=== PATIENT | female | born 1990 | race Two or more races ===

== ENCOUNTER 2024-06-13 10:21 | Emergency (ER) | payer MEDICAID, SELFPAY ==
[2024-06-13 10:40] VITALS: BP 128/81; PULSE 67; RESP 16; TEMP 36.8; O2SAT 99; BMI 39.4
--- NOTE | 2024-06-13 10:57 | EDNOTE_ITS ---
ED Eye Problem RME/HPI General Chief complaint: Eye Problems Stated complaint: LEFT EYE PAIN AND REDNESS Time Seen by Provider: 06/13/24 10:28 Source: patient Arrival date/time: 06/13/24 10:21 This is a 32-year-old female who presents to the emergency department with complaints of nasal pressure, bilateral ear pain, and redness in the left eye. She reports noticing a bloodshot appearance in her left eye for the past 3 days. She denies blurry vision, diplopia, or ocular pain. She does have a history of allergies and nasal congestion. She has not taken any [id number] medications or attempted any interventions prior to arrival. She denies any additional associated symptoms. No aggravating or relieving factors reported. No radiation or migration of symptoms. Related Data Home Medications ?Medication ?Instructions ?Recorded ?Confirmed ferrous sulfate 325 mg (65 mg 325 mg PO BIDWM #0 tabs 07/11/16 08/03/20 iron) tablet (Feosol) Previous Rx's ?Medication ?Instructions ?Recorded ibuprofen 800 mg tablet 800 mg PO TID PRN pain #30 t abs 08/04/20 amoxicillin 875 mg-potassium 1 tab PO BID #14 tabs clavulanate 125 mg tablet ibuprofen 800 mg tablet (IBU) 800 mg PO Q8H #20 tabs 0 06/13/24 loratadine 10 mg tablet (Allergy 10 mg PO Q24H PRN all ergic 06/13/24 Relief (loratadine)) symptoms #30 tabs Allergies Allergy/AdvReac Type Severity Reaction Status Date / Time No Known Allergies Allergy Verified 06/13/24 10:25 Review of Systems Review of Systems Systems Reviewed: All systems reviewed, normal except as documented Narrative Review of Systems: Review of Systems: * General: Denies fever, chills, weight loss * HEENT: Positive for nasal pressure, congestion, bilateral ear pain, and left eye redness. Denies blurry vision, diplopia, eye pain, or discharge * Respiratory: Denies shortness of breath or cough * Cardiovascular: Denies chest pain or palpitations * GI: Denies nausea, vomiting, or abdominal pain * Neuro: Denies headache, dizziness, weakness ED Exam Narrative Physical exam: General: Alert and oriented ?3, in no acute distress HEENT: * Head: Normocephalic, atraumatic * Eyes: Conjunctival injection of the left eye, no discharge, PERRLA, EOMI, no photophobia * Ears: Bilateral tympanic membranes mildly erythematous, no bulging or effusion * Nose: Mucosal congestion, no epistaxis * Throat: Oropharynx clear, no tonsillar exudate Neck: Supple, no lymphadenopathy Lungs: Clear to auscultation bilaterally Cardiovascular: RRR, no murmurs Neuro: CN II?XII intact, no focal deficits Course Quality Measures none Vital Signs Vital signs: Vital Signs Temperature 98.3 F 06/13/24 10:40 Pulse Rate 67 06/13/24 10:40 Respiratory Rate 16 06/13/24 10:40 Blood Pressure 128/81 06/13/24 10:40 Pulse Oximetry (%) 99 06/13/24 10:40 Oxygen Delivery Method Room Air 06/13/24 10:40 Eye MDM Narrative MDM Narrative:: Presentation consistent with subconjunctival hemmorhage. Given history and exam I have low suspicion for corneal abrasion or ulcer, globe rupture, uveitis, HSV keratitis, Endopthalmitis, Retinal Detachment, Angle Closure Glaucoma, Foreign Body, hyphema. As this is an isolated episode and patient has no other bleeding sequelae they are stable for discharge without further workup. Patient will also be treated for sinusitis. Discharge home with primary care and ophthalmology follow up in 48 hours if worsening or not resolving. Patient data External records reviewed:: [facility] previous records Clinical information provided by:: patient Social determinants that could affect healthcare access:: none Patient has the following chronic illnesses:: no How is presenting disease/condition affected by chronic disease/condition?: no chronic disease Evaluation data The following diagnostics were reviewed and interpreted by me:: other (specify) Lab and/or radiology exams considered but not ordered:: No Interpretation Summary: na Medications / Prescriptions Medications or Prescriptions considered but not ordered:: no Medication administrations:: no Consultations Consultation(s) initiated? (list below): No Diagnosis Eye Problem Differential Diagnosis: corneal abrasion, conjunctivitis, periorbital cellulitis and subconjunctival hemorrhage Most likely diagnosis given after review of the tests above:: Subconjunctival hemorrhage, sinusitis Admission Indicated Admission indicated?: not indicated Admission Request Was there a request for admission?: No Disposition Plan Disposition Plan: Discharge Discharge Attestation Discharge Attestation: The patient and all family members were given an opportunity to ask questions and understood the discharge instructions. Discharge instructions specifically effects, indications for sooner follow up or return to the emergency department, and the expected course of current diagnosis. Patient condition: Stable Discharge Plan Plan Patient Disposition: HOME (Self Care) Prescriptions/Referrals Prescriptions/Med Rec: New amoxicillin-pot clavulanate 875-125 mg tablet 1 tab PO BID Qty: 14 0RF loratadine [Allergy Relief (loratadine)] 10 mg tablet 10 mg PO Q24H PRN (Reason: allergic symptoms) Qty: 30 0RF ibuprofen [IBU] 800 mg tablet 800 mg PO Q8H Qty: 20 0RF No Action ferrous sulfate [Feosol] 1 TAB tablet 325 mg PO BIDWM Qty: 0 ibuprofen 800 mg tablet 800 mg PO TID PRN (Reason: pain) Qty: 30 0RF Problem List Clinical Impression: Subconjunctival hemorrhage, Sinusitis Patient/Caregiver Discharge Instructions Discharge Activity: activity as tolerated Education Materials: ED Sinusitis (Antibiotic Treatment), ED Subconjunctival Hemorrhage Additional Instructions: A subconjunctival hemorrhage occurs when a small blood vessel breaks just underneath the clear surface of your eye (conjunctiva). It can look alarming?like a bright red patch on the white part of the eye?but it's usually harmless and not painful. No specific treatment is needed in most cases Artificial tears (lubricating eye drops) can help relieve any irritation Avoid rubbing the eye It will clear on its own in 1?2 weeks as the blood is absorbed primary care and ophthalmology follow up in 48 hours if worsening or not resolving. He will also be treated for sinusitis. Take medication as directed. Follow-up with your primary doctor. Return to the emergency department with any worsening symptoms or change in condition. Print Language: Upper Sorbian Stand Alone Forms: Pepper Award Info., Patient Portal Info Letter PA/CREDIT CARD INTERVIEWER Supervising Physician RORY/CANDACE Supervising Physician: Dr. Williamson
== END 2024-06-13 14:22 | disposition home or self-care (01) ==
PROVIDERS: Emergency Provider Emergency Medicine; PCP Physician Assistant
DX: H11.32 Conjunctival hemorrhage, left eye (principal); J32.9 Chronic sinusitis, unspecified
CPT/HCPCS: 99281